=== PATIENT | male | born 1970 | race Caucasian/White ===

== ENCOUNTER 2016-09-20 12:48 | Emergency (ER) | payer MEDICARE ==
[~2016-09-20] VITALS: Ht 177.8 cm; Wt 108.0 kg
[~2016-09-20 12:48] MED LIST: ARIP1TAB87 PO; DEPA500T3 PO; SERO100T PO; SERT100 PO; XANA1TAB6 PO
[2016-09-20 12:49] VITALS: BP 142/99; PULSE 89; RESP 15; TEMP 97.9; O2SAT 98
[2016-09-20] MEDS ORDERED: PRED50 PO (13:13)
--- NOTE | 2016-09-20 13:13 | PD ---
HPI . left leg pain Chief Complaint: Pain: Acute or Chronic Time Seen by Provider: 13:00 Travel History International Travel<30 days: No Contact w/Intl Traveler<30days: No Traveled to known affect area: No History of Present Illness HPI 45-year-old male with history of bipolar disorder, chronic inflammation, chronic back pain, chronic leg pain, gout here with complaints of left lower extremity pain pain for quite some time. He says for the past week or so his left leg is been causing him pain. He has already seen his primary care provider, but had some issues where he was upset with the physician occupational therapist's assistant there as he wasn't getting the treatment he felt he deserved. Today he is here complaining of pain muscle strain of the calf muscle. He says his already taken muscle relaxers and tramadol without any relief. He tells me that the calf pain is likely present because he is not given his extremity any time to heal from his last injury. He thinks there may be something wrong with his calf muscle where it is not working. I did a bedside examination and demonstrated that his calf muscles were fully functioning. Patient then tells me he needs to get assistance with his right great toe gout. He says that he's been having intermittent pain in this toe and has a history of gout. He would also like a workup for his chronic inflammation in his back. He says that he is not getting the referrals he needs and hoping we would be able to help. He denies any bowel or bladder dysfunction. He denies any saddle anesthesia. He denies any recent injury. He is accompanied by his and son. PFSH Past Medical History Autoimmune Disease: No Blood Disorders: No Bipolar Disorder: Yes Anxiety: Yes Depression: Yes Heart Rhythm Problems: Yes ("IRREGULAR HEARTBEATS"/?) Cardiovascular Problems: Yes (STS ENLARGED HEART) Chest Pain: Yes (HX OF) Dialysis: Yes (HISTORY OF - S/P ANTIFREEZE ) Diminished Hearing: No Endocrine: No Gastrointestinal Disorders: No Genitourinary: No Hypertension: Yes Musculoskeletal: No Neurologic: Yes Psychiatric: Yes (SELF MUTILATION, SUICIDE ATTEMPT 4 YEARS AGO ANTIFREEZE CONSUMPTION) Respiratory: Yes (PULMONARY FIBROSIS) Immunizations Current: Yes Renal Failure: Yes (IN TH E PAST/NOT CURRENT) Seizures: Yes Past Surgical History AICD: No Joint Replacement: No Pacemaker: No Other Surgery: Yes (DENTAL) Social History Alcohol Use: Yes (2 BEERS/DAY) Tobacco Use: Yes (1 PPD X 25 YEARS) Substance Use: Yes Allergies-Medications (Allergen,Severity, Reaction): Coded Allergies: Penicillin (Verified Allergy, Severe, FACIAL SWELLING, 10/03/14) Reported Meds & Prescriptions Reported Meds & Active Scripts Active Prednisone 50 Mg Tab 50 Mg PO DAILY Reported Xanax 1 mg (Alprazolam) Alprazolam 1 mg Tab 2 Tab PO HS Zoloft (Sertraline HCl) 100 Mg Tab 200 Mg PO DAILY Depakote ER 500 mg (Divalproex Sodium) 500 Mg Tab 1 Tab PO BID Abilify 15 Mg Tab (Aripiprazole) 15 Mg Tab 15 Mg PO DAILY Seroquel (Quetiapine Fumarate) 100 Mg Tab 400 Mg PO DAILY Review of Systems General / Constitutional: No: Fever Eyes: No: Visual changes HENT: No: Headaches Cardiovascular: No: Chest Pain or Discomfort Respiratory: No: Shortness of Breath Gastrointestinal: No: Abdominal Pain Genitourinary: No: Dysuria Musculoskeletal: Positive: Pain (left leg pain /gout/ chronic inflammation ) Skin: No Rash Neurologic: No: Weakness Psychiatric: No: Depression Endocrine: No: Polydipsia Hematologic/Lymphatic: No: Easy Bruising Physical Exam Narrative GENERAL: AAO x 3, no acute distress, Well-nourished, well-developed patient. SKIN: Warm and dry. No visible rashes or bruising. HEAD: Normocephalic and atraumatic. EYES: No scleral icterus. No injection or drainage. ENT: No nasal drainage noted. Mucous membranes pink. Airway patent. NECK: Supple, trachea midline. No JVD. CARDIOVASCULAR: Regular rate and rhythm without murmurs, gallops, or rubs. RESPIRATORY: Breath sounds equal bilaterally. No accessory muscle use. No rhonchi or rales. GASTROINTESTINAL: Abdomen soft, non-tender, nondistended. EXTREMITIES: No cyanosis or edema. Lancaster's test negative bilaterally. Calf muscle symmetrical bilaterally. There is no edema, erythema or temperature difference of the legs. He has full range of motion of both extremities. Straight leg raise is negative bilaterally. No abn of right great toe. BACK: Nontender without obvious deformity. No CVA tenderness. No paraspinal or spinal or spinal process tenderness. PSYCH: AAO x 3, normal affect. Data Data Last Documented VS Vital Signs Date Time Temp Pulse Resp B/P Pulse Ox O2 Delivery O2 Flow Rate FiO2 09/20/16 12:49 97.9 89 15 142/99 98 MDM Medical Decision Making Medical Screen Exam Complete: Yes Emergency Medical Condition: Yes Medical Record Reviewed: Yes Differential Diagnosis gout, muscle strain, less likely fracture, acute on chronic pain Narrative Course 45-year-old male with history of bipolar disorder, chronic inflammation, chronic back pain, chronic leg pain, gout here with complaints of left lower extremity pain pain for quite some time. He says for the past week or so his left leg is been causing him pain. He has already seen his primary care provider, but had some issues where he was upset with the physician occupational therapist's assistant there as he wasn't getting the treatment he felt he deserved. Today he is here complaining of pain muscle strain of the calf muscle. He says his already taken muscle relaxers and tramadol without any relief. He tells me that the calf pain is likely present because he is not given his extremity any time to heal from his last injury. He thinks there may be something wrong with his calf muscle where it is not working. I did a bedside examination and demonstrated that his calf muscles were fully functioning. Patient then tells me he needs to get assistance with his right great toe gout. He says that he's been having intermittent pain in this toe and has a history of gout. He would also like a workup for his chronic inflammation in his back. He says that he is not getting the referrals he needs and hoping we would be able to help. He denies any bowel or bladder dysfunction. He denies any saddle anesthesia. He denies any recent injury. He is accompanied by his and son. Patient seen and examined. A thorough examination was performed on the patient. There are not any significant abnormalities. I discussed this with the patient and his family at bedside. I explained that I will go ahead and provide him with some steroids for his possible gout. Explained to him that ultimately he will need to follow with his primary care provider for further recommendations on all of his chronic issues. Patient was very happy that I had spent more than a "2 minutes" with him. The will check with their insurance to see if they actually require any referrals or can just go ahead and go to the specialist they desire. Patient verbalized understanding of instructions, questions were answered, and thanked me for their care. I advised them if their condition worsens, please return to the nearest emergency room for further care. Diagnosis Primary Impression: Gout Qualified Code: M1A.0710 - Chronic gout of right foot, unspecified cause Additional Impression: Muscle strain Patient Instructions: General Instructions Additional Instructions: Please return to emergency department if your symptoms return or worsen. Follow up with your primary care provider. Take medications as prescribed. Med/Other Pt SpecificInfo: Prescription(s) given Scripts Prednisone 50 Mg Tab50 Mg PO DAILY #5 TAB Prov:Blane Markham MD 09/20/16 Disposition: 01 DISCHARGE HOME Condition: Stable Marlin Chang Sep 20, 2016 13:13
== END 2016-09-20 13:33 | disposition home or self-care (01) ==
LOC: NEPD 12:48
DX: M10.9 Gout, unspecified (principal); S86.912A Strain of unspecified muscle(s) and tendon(s) at lower leg level, left leg, initial encounter; F31.9 Bipolar disorder, unspecified; F17.210 Nicotine dependence, cigarettes, uncomplicated; I10 Essential (primary) hypertension
CPT/HCPCS: 99282

== ENCOUNTER 2016-09-29 21:34 | Emergency (ER) | payer MEDICARE ==
[~2016-09-29] VITALS: Ht 170.2 cm; Wt 79.0 kg
[~2016-09-29 21:34] MED LIST changes: +PRED50 PO
[2016-09-29 21:35] VITALS: BP 152/100; PULSE 12; PULSE 72; RESP 16; TEMP 98.6; O2SAT 96
[2016-09-29] MEDS ORDERED: ABIL15TA2 PO (23:31)
[2016-09-29] MEDS ORDERED: SERO400T PO (23:31)
[2016-09-29] MEDS ORDERED: DEPA500T3 PO (23:31)
[2016-09-29] MEDS ORDERED: ZOLO100T PO (23:32)
[2016-09-30] MEDS ORDERED: SODIUM CHLORIDE 0.9% FLUSH 10 ML FLUSH IVF PRN
[2016-09-30 00:15] VITALS: BP 131/87; PULSE 87; RESP 17; O2SAT 96
[2016-09-30 00:29] LABS: AUTOMATED NEUTROPHIL # 7.7 TH/MM3 (1.8-7.7); BASOPHIL % 0.4 % (0.0-2.0); EOSINOPHIL # 0.3 TH/MM3 (0-0.4); EOSINOPHIL % 2.2 % (0.0-4.0); HEMATOCRIT 36.2 % (39.0-51.0); LYMPH % 22.8 % (9.0-44.0); LYMPHOCYTE # 2.5 TH/MM3 (1.0-4.8); MEAN CELL VOLUME 83.7 FL (80.0-100.0); MEAN CORPUSCULAR HEMOGLOBIN 29.3 PG (27.0-34.0); MONO % 5.1 % (0.0-8.0); NEUT % 69.5 % (16.0-70.0); PLATELET COUNT 269 TH/MM3 (150-450); RED BLOOD COUNT 4.32 MIL/MM3 (4.50-5.90); RED CELL DISTRIBUTION WIDTH 13.2 % (11.6-17.2); WHITE BLOOD COUNT 11.2 TH/MM3 (4.0-11.0)
[2016-09-30 00:31] LABS: HEMO FLAGS AUTO DIFF
[2016-09-30 00:42] LABS: APTT (PATIENT) 27.9 SEC (24.3-30.1); PROTHROMBIN TIME - PATIENT 11.3 SEC (9.8-11.6)
--- NOTE | 2016-09-30 00:46 | PD ---
HPI Chief Complaint: Edema Time Seen by Provider: 23:59 Travel History International Travel<30 days: No Contact w/Intl Traveler<30days: No Traveled to known affect area: No History of Present Illness HPI Patient 45-year-old male presents emergency department with painless left lower extremity swelling. Patient was seen and evaluated earlier this week and diagnosed with gout. He has not taken his medicines and then. Patient denies any trauma history. Denies any pain to his left lower extremity. Denies history of blood clots stasis or blood clots in the family. Denies any shortness of breath or chest pain at this time. PFSH Past Medical History Autoimmune Disease: No Blood Disorders: No Bipolar Disorder: Yes Anxiety: Yes Depression: Yes Heart Rhythm Problems: Yes ("IRREGULAR HEARTBEATS"?- PER PT) Cardiovascular Problems: Yes (STS ENLARGED HEART) Chest Pain: Yes (HX OF) Dialysis: Yes (HISTORY OF - S/P ANTIFREEZE ) Diminished Hearing: No Endocrine: No Gastrointestinal Disorders: No Genitourinary: No Hypertension: Yes Musculoskeletal: No Neurologic: Yes Psychiatric: Yes (SELF MUTILATION, SUICIDE ATTEMPT 4 YEARS AGO ANTIFREEZE CONSUMPTION) Respiratory: Yes (PULMONARY FIBROSIS) Immunizations Current: Yes Renal Failure: Yes (IN THE PAST/NOT CURRENT) Seizures: Yes Tetanus Vaccination: > 5 Years Past Surgical History AICD: No Joint Replacement: No Pacemaker: No Other Surgery: Yes (DENTAL) Social History Alcohol Use: Yes (2 BEERS/DAY) Tobacco Use: Yes (1 PPD X 25 YEARS) Substance Use: Yes Allergies-Medications (Allergen,Severity, Reaction): Coded Allergies: Penicillin (Verified Allergy, Severe, FACIAL SWELLING, 09/29/16) Reported Meds & Prescriptions Reported Meds & Active Scripts Active Reported Zoloft (Sertraline HCl) 100 Mg Tab 200 Mg PO DAILY Seroquel (Quetiapine Fumarate) 400 Mg Tab 400 Mg PO BID Depakote ER (Divalproex Sodium) 500 Mg Nelson 500 Mg PO BID Abilify (Aripiprazole) 15 Mg Tab 15 Mg PO DAILY Review of Systems Except as stated in HPI: all other systems reviewed are Neg Physical Exam Narrative GENERAL: Well-developed well-nourished no apparent distress SKIN: Focused skin assessment warm/dry. HEAD: Atraumatic. Normocephalic. EYES: Pupils equal and round. No scleral icterus. No injection or drainage. ENT: No nasal bleeding or discharge. Mucous membranes pink and moist. NECK: Trachea midline. No JVD. CARDIOVASCULAR: Regular rate and rhythm. No murmur appreciated. RESPIRATORY: No accessory muscle use. Clear to auscultation. Breath sounds equal bilaterally. GASTROINTESTINAL: Abdomen soft, non-tender, nondistended. Hepatic and splenic margins not palpable. MUSCULOSKELETAL: No obvious deformities. No clubbing. No cyanosis. Patient does have some mild edema of the dorsum of the left foot. There is no redness. It is somewhat warm to touch. There is also some swelling over the left calf. Homans sign is negative. Right lower extremity is normal. Pulses motor and sensory intact distally in both lower extremity's. NEUROLOGICAL: Awake and alert. No obvious cranial nerve deficits. Motor grossly within normal limits. Normal speech. PSYCHIATRIC: Appropriate mood and affect; insight and judgment normal. Data Data Last Documented VS Vital Signs Date Time Temp Pulse Resp B/P Pulse Ox O2 Delivery O2 Flow Rate FiO2 09/30/16 00:15 87 17 131/87 96 Room Air 09/29/16 21:35 98.6 Orders Basic Metabolic Panel (Bmp) (09/29/16 23:59) Complete Blood Count With Diff (09/29/16 23:59) Prothrombin Time / Inr (Pt) (09/29/16 23:59) Act Partial Throm Time (Ptt) (09/29/16 23:59) Ecg Monitoring (09/29/16 23:59) Iv Access Insert/Monitor (09/29/16 23:59) Oximetry (09/29/16 23:59) Oxygen Administration (09/29/16 23:59) Sodium Chloride 0.9% Flush (Ns Flush) (09/30/16 00:00) Us Leg Venous Doppler (09/29/16 23:59) Labs Laboratory Tests Test 09/30/16 00:10 White Blood Count 11.2 TH/MM3 Red Blood Count 4.32 MIL/MM3 Hemoglobin 12.6 GM/DL Hematocrit 36.2 % Mean Corpuscular Volume 83.7 FL Mean Corpuscular Hemoglobin 29.3 PG Mean Corpuscular Hemoglobin 35.0 % Concent Red Cell Distribution Width 13.2 % Platelet Count 269 TH/MM3 Mean Platelet Volume 7.2 FL Neutrophils (%) (Auto) 69.5 % Lymphocytes (%) (Auto) 22.8 % Monocytes (%) (Auto) 5.1 % Eosinophils (%) (Auto) 2.2 % Basophils (%) (Auto) 0.4 % Neutrophils # (Auto) 7.7 TH/MM3 Lymphocytes # (Auto) 2.5 TH/MM3 Monocytes # (Auto) 0.6 TH/MM3 Eosinophils # (Auto) 0.3 TH/MM3 Basophils # (Auto) 0.0 TH/MM3 CBC Comment AUTO DIFF Prothrombin Time 11.3 SEC Prothromb Time International 1.0 RATIO Ratio Activated Partial 27.9 SEC Thromboplast Time MDM Medical Decision Making Medical Screen Exam Complete: Yes Emergency Medical Condition: Yes Differential Diagnosis DVT, left lower extremity swelling, left lower extremity gout. Narrative Course Patient 45-year-old male brought to the emergency department with relatively painless left lower extremity swelling. There is some swelling of the calf as well as the foot. DVT ultrasound is ordered. Patient was discussed with Dr. Posey at 0100 she will follow-up ultrasound labs and disposition properly. Rakan Díaz MD Sep 30, 2016 00:46
[2016-09-30 00:49] LABS: BICARBONATE 30.7 MEQ/L (21.0-32.0); POTASSIUM 3.1 MEQ/L (3.5-5.1)
[2016-09-30 01:48] LABS: SCAN/DIFF AUTO DIFF CONFIRMED
--- NOTE | 2016-09-30 02:05 | RADRPT ---
EXAM DATE/TIME: 09/30/2016 01:17 [facility] COMPARISON: No previous studies available for comparison. INDICATIONS : Swelling in left leg. MEDICAL HISTORY : Hypertension. Seizures. Enlarged heart. Pulmonary fibrosis. SURGICAL HISTORY : None. ENCOUNTER: Initial ACUITY: 1 week PAIN SCORE: 7/10 LOCATION: Left leg. TECHNIQUE: Venous ultrasound of the leg was performed from the inguinal ligament to the proximal calf. Real-becky e, color Doppler and spectral tracing, compression and augmentation techniques were used. FINDINGS: There is normal compressibility of the deep venous system from the inguinal region to the proximal ca lf. No echogenic clot is seen in the lumen of the common femoral, femoral, popliteal, and posterior tibial veins. There is a normal response of the venous system to proximal and distal augmentation an d respiration. CONCLUSION: No evidence of DVT. Ramiro Banks MD on September 30, 2016 at 2:03 Board Certified Radiologist. This report was verified electronically.
[2016-09-30] MEDS ORDERED: POTASSIUM CHLORIDE 20 MEQ CONTROLLED RELEASE TAB PO ONE (03:30)
[2016-09-30] MEDS ORDERED: POTASSIUM CHLOR 10 MEQ PREMIX 100 ML IV ONE (03:30)
[2016-09-30] MEDS ORDERED: POTA10TA2 PO (03:41)
--- NOTE | 2016-09-30 03:41 | PD ---
Physical Exam Date Seen by Provider: Sep 30, 2016 Time Seen by Provider: 03:37 Narrative 45-year-old male came to the emergency room with history of leg swelling. He was seen by the previous ER physician. Please refer to his history and physical for further details and inflammation. The case was signed out to me to follow-up on the ultrasound and blood test result. Ultrasound was ordered of the legs to rule out DVT and it is negative for DVT. Blood test result shows hypokalemia. I went and saw the patient and let him know and his family about the test results. He is on hydrochlorothiazide and not on any potassium supplement. In my opinion that's what has caused the potassium to go down. I' ve ordered for potassium supplement here and he will also go home on prescription for 1 week of potassium. After that he has to follow up with his primary care. Data Data Last Documented VS Orders Basic Metabolic Panel (Bmp) (09/29/16 23:59) Complete Blood Count With Diff (09/29/16 23:59) Prothrombin Time / Inr (Pt) (09/29/16 23:59) Act Partial Throm Time (Ptt) (09/29/16 23:59) Ecg Monitoring (09/29/16 23:59) Iv Access Insert/Monitor (09/29/16 23:59) Oximetry (09/29/16 23:59) Oxygen Administration (09/29/16 23:59) Sodium Chloride 0.9% Flush (Ns Flush) (09/30/16 00:00) Us Leg Venous Doppler (09/30/16 23:59) Potassium Chloride (Kcl) (09/30/16 03:30) Potassium Chlor 10 Meq Premix (Kcl 10 Me (09/30/16 03:30) Labs Laboratory Tests Test 09/30/16 00:10 White Blood Count 11.2 TH/MM3 Red Blood Count 4.32 MIL/MM3 Hemoglobin 12.6 GM/DL Hematocrit 36.2 % Mean Corpuscular Volume 83.7 FL Mean Corpuscular Hemoglobin 29.3 PG Mean Corpuscular Hemoglobin 35.0 % Concent Red Cell Distribution Width 13.2 % Platelet Count 269 TH/MM3 Mean Platelet Volume 7.2 FL Neutrophils (%) (Auto) 69.5 % Lymphocytes (%) (Auto) 22.8 % Monocytes (%) (Auto) 5.1 % Eosinophils (%) (Auto) 2.2 % Basophils (%) (Auto) 0.4 % Neutrophils # (Auto) 7.7 TH/MM3 Lymphocytes # (Auto) 2.5 TH/MM3 Monocytes # (Auto) 0.6 TH/MM3 Eosinophils # (Auto) 0.3 TH/MM3 Basophils # (Auto) 0.0 TH/MM3 CBC Comment AUTO DIFF Differential Comment AUTO DIFF CONFIRMED Prothrombin Time 11.3 SEC Prothromb Time International 1.0 RATIO Ratio Activated Partial 27.9 SEC Thromboplast Time Sodium Level 142 MEQ/L Potassium Level 3.1 MEQ/L Chloride Level 102 MEQ/L Carbon Dioxide Level 30.7 MEQ/L Anion Gap 9 MEQ/L Blood Urea Nitrogen 20 MG/DL Creatinine 0.90 MG/DL Estimat Glomerular Filtration 90 ML/MIN Rate Random Glucose 137 MG/DL Calcium Level 8.5 MG/DL MDM Supervised Visit with MAYANK: No Diagnosis Primary Impression: Hypokalemia Additional Impression: Leg swelling Referrals: Primary Care Physician 3 days Additional Instruction: Please return to the ER if the condition worsens or any other new concerns. Please take the potassium supplement prescription given to matt. Lion. Primary care in couple days in order to get additional dose prescription. If the leg continues to swell and bothers she will need a repeat ultrasound in a week. Med/Other Pt SpecificInfo: Prescription(s) given Scripts Potassium Chloride ER 10 Meq Tab10 Meq PO BID #14 TAB Ref 0 Prov:Daphne Posey MD 09/30/16 Disposition: DISCHARGE HOME Condition: Stable Daphne Posey MD Sep 30, 2016 03:41 week. Med/Other Pt SpecificInfo: Prescription(s) given Scripts Potassium Chloride ER 10 Meq Tab10 Meq PO BID #14 TAB Ref 0 Prov:Daphne Posey MD 09/30/16 Disposition: DISCHARGE HOME Condition: Stable Daphne Posey MD Sep 30, 2016 03:41
== END 2016-09-30 05:30 | disposition home or self-care (01) ==
LOC: NEPD 21:34 → NEPC 09-30 05:30
DX: E87.6 Hypokalemia (principal); M79.89 Other specified soft tissue disorders
CPT/HCPCS: 80048; 85025; 85610; 85730; 93971; 96365; 99284; J3480